=== PATIENT | male | born 1990 | race Caucasian/White ===

== ENCOUNTER 2017-02-01 19:55 | Emergency (ER) | payer OTHER ==
[~2017-02-01] VITALS: Ht 172.7 cm; Wt 68.5 kg
[2017-02-01 20:03] VITALS: BP 111/71
== END 2017-02-02 01:13 | disposition left against medical advice (07) ==
LOC: EDBD 19:55 → ER 19:55
DX: F10.129 Alcohol abuse with intoxication, unspecified (principal); J45.909 Unspecified asthma, uncomplicated; Y90.9 Presence of alcohol in blood, level not specified
CPT/HCPCS: 99283